=== PATIENT | female | born 1990 | race Caucasian/White ===

== ENCOUNTER → 2018-04-19 | Outpatient (CLI) | payer OTHER ==
[2018-04-19 13:17] VITALS: BP 111/56; PULSE 93; BMI 27.4
--- NOTE | 2018-04-19 13:49 | P.GSHP ---
History of Present Illness H&P Date: 04/19/18 The patient is a 28 year old white female with a known cystic area in her left breast in the periareolar region for several years. She at this time is 37 weeks and several weeks ago the area of cystic nodularity became inflamed and had increasing erythema throughout her left breast. The area of the breast became red and swollen. It also was painful. The patient was on clindamycin and the area was treated with a heat pack. The area then opened and drained. The patient had an ultrasound done on 04-06-18. The ultrasound revealed a 3.9 cm retroareolar irregular hypoechoic lesion on the left. Additionally it revealed a 3.2 cm left axillary lesion suggestive of a reactive lymph node. Impression abnormal ill-defined area of team diminished echogenicity with poor defined borders and internal echoes at the retroareolar region of the left breast measuring 3.9 cm. Suspect it may reflect an abscess or hematoma. Close follow-up after delivery is recommended. Patient no fever or chills. The patient drinks one glass of pop per day. She is a smoker and her fianc is a smoker as well. She does not eat large amounts of chocolate. Family history: 1. Maternal grandmother breast cancer at the age of 36 2. Maternal grandfather: Colon cancer 3. Maternal aunt: Ovarian cancer in her 30s No genetic testing has been done. Hormonal history: Menarche: 9 Pregnancies: 1 she is at this time and is due at any time Periods have been irregular control pills colon to regulate periods Past surgical history: 1. Tonsillectomy Past medical history: Negative Social history: Smoking: A cigarettes per day Alcohol: Negative Drugs: Negative Review of systems: HEENT: Negative Lungs: Negative Heart: Negative GI: Negative Arthritis: Negative Neurologic: Negative ALLERGIES: No seasonal ALLERGIES Psychiatric: Negative - Constitutional Constitutional: Denies chills, Denies fever - EENT Eyes: bilateral as per HPI Ears: deny: decreased hearing, earache Ears, nose, mouth and throat: Denies headache, Denies sore throat - Breasts Breasts: bilateral: as per HPI - Cardiovascular Cardiovascular: Denies chest pain, Denies shortness of breath - Respiratory Comment: smoker - Gastrointestinal Gastrointestinal: Reports as per HPI - Genitourinary (Female) Genitourinary: Reports as per HPI - Menstruation Comment: - Musculoskeletal Musculoskeletal: Reports as per HPI - Integumentary Integumentary: Reports pruritus - Neurological Neurological: Denies numbness, Denies weakness - Psychiatric Psychiatric: Denies anxiety, Denies depression - Endocrine Endocrine: Denies fatigue, Denies weight change - Hematologic/Lymphatic Comment: none - Allergic/Immunologic Comment: none Past Medical History Past Medical History: No Reported History History of Any Multi-Drug Resistant Organisms: None Reported Past Surgical History: Tonsillectomy Past Anesthesia/Blood Transfusion Reactions: No Reported Reaction Smoking Status: Current every day smoker - Past Family History Mother Family Medical History: Thyroid Disorder Father Family Medical History: No Reported History Sister(s) Family Medical History: No Reported History Medications and Allergies Home Medications Medication Instructions Recorded Confirmed Type Iron/Folate 9/Vit C/D3/B6/B12 1 each PO DAILY 04/19/18 04/19/18 History [Nufera Tablet] Pnv,Calcium 72/Iron/Folic Acid 1 each PO DAILY 04/19/18 04/19/18 History [ Plus Tablet] Surgical - Exam Vital Signs Pulse BP Pulse Ox 93 111/56 96 04/19/18 13:12 04/19/18 13:12 04/19/18 13:12 - General Gravid uterus 37 weeks - Eyes normal ocular movement, no icteric - ENT no hearing loss, no congestion - Neck no masses, trachea midline - Respiratory normal respiratory effort, clear to auscultation - Cardiovascular Rhythm: regular Heart Sounds: normal: S1, S2 - Abdomen gravid uterus - Integumentary Breast examination: Right breast: Patient has a changes related to no dominant masses or nodules of concern Right axilla: No adenopathy of concern Left breast: Changes related to , in the periareolar area at approximately 2:00 there is increased in duration and appears that she has had some drainage from this site with some mild erythema, no active evidence of infection at this time Left axilla: No adenopathy of concern Results Ultrasound report reviewed Assessment and Plan Assessment: Impression/plan: 1. 38 week 28-year-old female with recent left breast abscess which drained spontaneously Plan: 1. Does not appear to have active infection at this time 2. Repeat left breast ultrasound following delivery with follow up visit at 4 weeks 3. Patient responded well to clindamycin will give 1 more week course of clindamycin 4. Patient to call if any changes or questions Cc: Dr. Craft
== END | disposition home or self-care (01) ==
LOC: WWCWWP 13:05
PROVIDERS: ATTEND Surgery
DX: Z53.9 Procedure and treatment not carried out, unspecified reason (principal)